=== PATIENT | female | born 1980 | race African-American/Black ===

== ENCOUNTER 2017-05-07 09:54 | Emergency (ER) | payer OTHER ==
[2017-05-07 10:05] VITALS: BP 115/75; PULSE 71; TEMP 98; BMI 28.3
--- NOTE | 2017-05-07 10:51 | PDOC ---
History of Present Illness - General Chief Complaint: Allergic Reaction Stated Complaint: ALLERGIC REACTION Time Seen by Provider: 05/07/17 10:16 History Source: Patient Exam Limitations: No Limitations - History of Present Illness Initial Comments: 05/07/17 10:45 The patient is a 36F with no PMH who presents to the ED with complaints of L forearm blistering and redness. The patient states that she had a PPD test done on this past Sunday. She states that she noted swelling and redness on Sunday which progressed to a blister over the initial wheal site with redness around the PPD site. 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 She believes she had the tuberculosis vaccination in [place] and that is why her tests are positive. She denies any fever, chills , nausea, vomiting, night sweats, cough, CP, SOB. Past History - Past Medical History Allergies/Adverse Reactions: Allergies Allergy/AdvReac Type Severity Reaction Status Date / Time No Known Drug Allergies Allergy Verified 05/07/17 10:05 Home Medications: Ambulatory Orders Sulfamethoxazole/Trimethoprim [Bactrim Ds -] 1 tab PO BID #20 tablet 05/07/17 Asthma: No Cancer: No Cardiac Disorders: No COPD: No Diabetes: Yes (GESTATIONAL DIET CONTROL) HTN: No Seizures: No Thyroid Disease: No - Immunization History Td Vaccination: Yes Immunization Up to Date: Yes - Suicide/Smoking/Psychosocial Hx Smoking Status: No Smoking History: Never smoked Years of Tobacco Use: 0 Have you smoked in the past 12 months: No Number of Cigarettes Smoked Daily: 0 Cigars Per Day: 0 Information on smoking cessation initiated: No Hx Alcohol Use: No Drug/Substance Use Hx: No Substance Use Type: None Hx Substance Use Treatment: No Review of Systems - Review of Systems Able to Perform ROS?: Yes Is the patient limited Liberian proficient: No Constitutional: No: Chills, Fever HEENTM: No: Blurred Vision, Recent change in vision Respiratory: No: Cough, Shortness of Breath Cardiac (ROS): No: Chest Pain, Lightheadedness ABD/GI: No: Nausea, Vomiting : No: Burning, Dysuria Musculoskeletal: No: Back Pain, Muscle Pain Integumentary: Yes: Erythema, Rash Neurological: No: Headache, Numbness, Tingling, Weakness *Physical Exam - Vital Signs Last Vital Signs Temp Pulse Resp BP Pulse Ox 98 F 71 18 115/75 99 05/07/17 10:03 05/07/17 10:03 05/07/17 10:03 05/07/17 10:03 05/07/17 10:03 - Physical Exam Comments: 05/07/17 10:53 GENERAL: Well developed, well nourished. Awake and alert. No acute distress. HEENT: Normocephalic, atraumatic. Hearing grossly normal. Moist mucous membranes. PERRLA, EOMI. No conjunctival pallor. Sclera are non-icteric. Oropharynx is clear. NECK: Supple. Full ROM. No JVD. Carotid pulses 2+ and symmetric, without bruits. No thyromegaly. No lymphadenopathy. CARDIOVASCULAR: Regular rate and rhythm. No murmurs, rubs, or gallops. Distal pulses are 2+ and symmetric. PULMONARY: No evidence of respiratory distress. Lungs clear to auscultation bilaterally. No wheezing, rales or rhonchi. ABDOMINAL: Soft. Non-tender. Non-distended. No rebound or guarding. No organomegaly. Normoactive bowel sounds. GENITOURINARY: No CVA tenderness bilaterally. MUSCULOSKELETAL: Normal range of motion at all joints. No bony deformities or tenderness. EXTREMITIES: No cyanosis. No clubbing. No edema. No calf tenderness. SKIN: Warm and dry. Normal capillary refill. No rashes. No jaundice. [id number] erythematous, warm to touch rash with a blister in the middle. Not tender to palpation. NEUROLOGICAL: Alert, awake, appropriate. Cranial nerves 2-12 intact. No motor deficits in the in face, upper extremities and lower extremities. Normal speech. Gait is unobserved. PSYCHIATRIC: Cooperative. Good eye contact. Appropriate mood and affect. Medical Decision Making - Medical Decision Making 05/07/17 10:54 The patient is a 36F with no PMH who presents with cellulitis likely 2/2 to her PPD test/break in skin from PPD. The most likely diagnosis is cellulitis. She is neurovascularly intact in both of her arms. CXR from [facility] is pending. 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 *DC/Admit/Observation/Transfer Diagnosis at time of Disposition: Cellulitis Qualifiers: Site of cellulitis: other site Qualified Code(s): L03.818 - Cellulitis of other sites - Discharge Dispostion Disposition: HOME Condition at time of disposition: Stable Admit: No - Prescriptions Prescriptions: Sulfamethoxazole/Trimethoprim [Bactrim Ds -] 1 tab PO BID #20 tablet - Referrals Referrals: STAFF,NOT ON [Primary Care Provider] - - Patient Instructions Printed Discharge Instructions: DI for Cellulitis -- Adult Additional Instructions: Please return to the ER if symptoms persist, worsen, or new symptoms arise. Please follow up with your primary care physician in 2-3 days. Please return to the ER if you have any signs or symptoms of chest pain, shortness of breath, uncontrollable fever, chills, nausea, vomiting, numbness, tingling, or weakness in any part of your body, changes in vision, or slurred speech. Please take your medications as prescribed. Print Language: VIETNAMESE - Post Discharge Activity
[2017-05-07] MEDS ORDERED: SULFAMETHOXAZOLE/TRIMETHOPRIM 800MG/160MG D.S. TABLET PO ONE (11:05)
[2017-05-07] MEDS ORDERED: SULFAMETHOXAZOLE/TRIMETHOPRIM 800MG/160MG D.S. TABLET ONE (11:08)
--- NOTE | 2017-05-07 11:13 | PDOC ---
Attending Attestation - Resident Resident Name: Gallo Mooreony - ED Attending Attestation I have performed the following: I have examined & evaluated the patient, The case was reviewed & discussed with the resident, I agree w/resident's findings & plan, Exceptions are as noted - HPI HPI: 05/07/17 11:06 36y/o F with h/o +PPD after vaccination, no symptoms and normal CXR in the past. No sxs, but Sunday had another PPD. Began noticing redness the following day, over the last 24h increasing redness and blistering at the site with pain, so sent to ED for evaluation. no f/c. no motor/sensory deficit. has NO pulmonary or B complaints. works in a snf. - Physicial Exam PE: 05/07/17 11:13 VSS L forearm: 5cm area of warm, tender induration on dorsal L forearm, not circumferential. central blistering but no discharge/fluctuance nvi distally without joint pathology, FROM - Medical Decision Making 05/07/17 11:14 Patient seen and evaluated with the resident. I agree with the overall evaluation, assessment, and management with the following summary of visit: 36-year-old female with no significant past medical history other than known positive PPDs in the past presents now with infected PPD site/cellulitis. Neurovascularly intact, no systemic symptoms, no TB symptoms. 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
== END 2017-05-07 11:30 | disposition home or self-care (01) ==
LOC: JER 09:54
DX: L03.114 Cellulitis of left upper limb (principal)
CPT/HCPCS: 99282-25